=== PATIENT | male | born 1990 | race Hispanic/Latino ===

== ENCOUNTER 2016-10-27 13:16 | Emergency (ER) | payer SELFPAY ==
[~2016-10-27] VITALS: Ht 172.7 cm; Wt 83.4 kg
[2016-10-27 16:25] LABS: HEMATOCRIT 41.5 % (38.0-50.0); MCH 29.4 PG (29.0-34.0); MCV 89.1 FL (86-99); MEAN PLAT.VOLUME 9.6 uM^3 (9.0-12.4); PLATELET COUNT 234 K/uL (156-360); RBC DIS.WIDTH-CV 12.8 % (11.8-14.6); RBC DIS.WIDTH-SD 41.7 % (39-53); RED BLOOD COUNT 4.66 M/uL (4.00-5.50); WHITE BLOOD COUNT 6.9 K/uL (4.1-10.2)
[2016-10-27 16:34] LABS: CHLORIDE 103 mEq/L (99-109); POTASSIUM 3.6 mEq/L (3.7-5.4); SODIUM 137 mEq/L (136-147)
[2016-10-27 16:36] LABS: GLUCOSE 94 mg/dL (70-99)
[2016-10-27 16:38] LABS: ANION GAP 9 MEQ/L (2-14); TOTAL BILIRUBIN 1.4 mg/dL (0.0-1.0)
[2016-10-27 16:40] LABS: ALKALINE PHOSPHATASE 74 IU/L (3-129); GFR ESTIMATE (CALCULATED) > 59 mL/min/
[2016-10-27 16:41] LABS: UREA NITROGEN (BUN) 15 mg/dL (9-23)
[2016-10-27] MEDS ORDERED: MOTRIN800 MG PO (20:51)
[2016-10-27] MEDS ORDERED: PERCOCET 5/31 TABLET PO (20:51)
[2016-10-27 21:45] VITALS: BP 125/78
== END 2016-10-27 22:21 | disposition home or self-care (01) ==
LOC: EME 13:16
PROVIDERS: Nurse Practitioner Family
DX: S22.059A Unspecified fracture of T5-T6 vertebra, initial encounter for closed fracture (principal); S22.069A Unspecified fracture of T7-T8 vertebra, initial encounter for closed fracture; S22.079A Unspecified fracture of T9-T10 vertebra, initial encounter for closed fracture; S32.029A Unspecified fracture of second lumbar vertebra, initial encounter for closed fracture; V80.010A Animal-rider injured by fall from or being thrown from horse in noncollision accident, initial encounter; Y93.52 Activity, horseback riding; S32.039A Unspecified fracture of third lumbar vertebra, initial encounter for closed fracture; S32.049A Unspecified fracture of fourth lumbar vertebra, initial encounter for closed fracture
CPT/HCPCS: 72129; 72132; 74177; 80053; 85027; 99281; 99285; J1885; J2270